=== PATIENT | male | born 1940 | race Caucasian/White ===

== ENCOUNTER 2018-06-27 10:21 | Day surgery (SDC) | payer MEDICARE ==
[~2018-06-27] VITALS: Ht 170.2 cm; Wt 103.9 kg
[2018-06-27] VITALS (8 sets, daily range): BP systolic 100–160; BP diastolic 51–68
[2018-06-27] MEDS ORDERED: diphenhydrAMINE 25mg capsule PO PRN (11:05)
[2018-06-27] MEDS ORDERED: LORazepam 0.5 MG tablet PO PRN (11:05)
[2018-06-27] MEDS ORDERED: normal saline 1,000 ML IV SCH ×2 (11:05→14:14)
[2018-06-27] MEDS ORDERED: nitroGLYCERIN-Tridil 50MG/D5W 250 ML IV ONE (11:31)
[2018-06-27] MEDS ORDERED: RIVA20TA PO (11:31)
[2018-06-27] MEDS ORDERED: MULT-1085 PO (11:31)
[2018-06-27] MEDS ORDERED: FLEC100T PO (11:31)
[2018-06-27] MEDS ORDERED: iohexol 350 MG/1 ML 200ml bottle ONE (11:32)
[2018-06-27] MEDS ORDERED: iohexol 350 MG/ML 50ML vial IV ONE ×2 (11:32→12:32)
[2018-06-27] MEDS ORDERED: LIDOcaine 1% (10mg/ml)w/preservative injection 20ml MDV ONE (11:32)
[2018-06-27] MEDS ORDERED: verapamil 2.5 mg/ml inj IV ONE (11:32)
[2018-06-27] MEDS ORDERED: heparin 1,000unit/ml 10ml vial 10 ML ONE (11:32)
[2018-06-27] MEDS ORDERED: fentaNYL/PF 50MCG/1 ML 2ML syringe ONE (11:39)
[2018-06-27] MEDS ORDERED: midazolam 2 mg/2 ml injection ONE (11:39)
[2018-06-27 11:55] LABS: BASOPHILS % (AUTO) 0.6 % (0-1); EOSINOPHILS % (AUTO) 0.5 % (0-6); HEMOGLOBIN 17.3 g/dl (14.0-17.9); LYMPHOCYTES # (AUTO) 1.5 X10'3 (1.1-4.8); LYMPHOCYTES % (AUTO) 18.5 % (21-51); MEAN CORPUSCULAR HEMOGLOBIN 31.8 PG (27.0-31.0); MEAN CORPUSCULAR HGB CONC 34.6 g/dL (33.0-36.5); MEAN CORPUSCULAR VOLUME 92.1 FL (78-98); MEAN PLATELET VOLUME 7.8 FL (7.4-10.4); MONOCYTES # (AUTO) 0.6 X10'3 (0-0.9); MONOCYTES % (AUTO) 7.7 % (2-12); NEUTROPHILS # (AUTO) 5.8 X10'3 (1.8-7.7); NEUTROPHILS % (AUTO) 72.7 % (42-75); PLATELET COUNT 186 X10'3 (140-440); RED BLOOD COUNT 5.43 X10'6 (4.70-6.10); RED CELL DISTRIBUTION WIDTH 13.5 % (11.5-14.5)
[2018-06-27 12:10] LABS: ALBUMIN 3.6 G/DL (3.4-5.0); ANION GAP 9 (8-16); BLOOD UREA NITROGEN 23 MG/DL (7-18); BUN/CREATININE RATIO 18.9 (5.4-32.0); CALCIUM 8.8 MG/DL (8.5-10.1); CHLORIDE 102 MMOL/L (99-107); CREATININE 1.22 MG/DL (0.60-1.10); GLUCOSE 99 MG/DL (70-104); PARTIAL THROMBOPLASTIN TIME 30 SECONDS (22-32); POTASSIUM 4.2 MMOL/L (3.5-5.1); SODIUM 136 MMOL/L (135-145); TOTAL CARBON DIOXIDE 25.2 MMOL/L (24-32); eGFR 58 ML/MIN
[2018-06-27 13:00] LABS: ISTAT HGB ART 16.3 g/dl (14.0-18.0); ISTAT Hct ART 48 %PCV (42-52); ISTAT O2 SATURATION ARTERIAL 85 % (95-98); ISTAT SOURCE ART
[2018-06-27 13:27] LABS: NUCLEATED RED BLOOD CELLS 1 /100WBC (0-0); TOTAL CELLS COUNTED 100
[2018-06-27 13:28] LABS: PLATELET ESTIMATE NORMAL
[2018-06-27] MEDS ORDERED: acetylcysteine 200 MG/ml 4ml vial PO SCH (14:14)
[2018-06-27 14:26] LABS: ISTAT Hct MIX 45 %PCV (42-52); ISTAT O2 SATURATION MIX VENOUS 68 % (60-80); ISTAT SOURCE MIX
== END 2018-06-27 17:00 | disposition home or self-care (01) ==
LOC: SSTAY O 10:21
PROVIDERS: ATTEND Internal Medicine Cardiovascular Disease
DX: I25.10 Atherosclerotic heart disease of native coronary artery without angina pectoris (principal); I35.0 Nonrheumatic aortic (valve) stenosis; I71.9 Aortic aneurysm of unspecified site, without rupture; I10 Essential (primary) hypertension; G47.30 Sleep apnea, unspecified; I48.91 Unspecified atrial fibrillation; G47.33 Obstructive sleep apnea (adult) (pediatric); Z98.890 Other specified postprocedural states; Z88.8 Allergy status to other drugs, medicaments and biological substances; Z91.040 Latex allergy status; Z91.018 Allergy to other foods
CPT/HCPCS: 36415; 80048; 82803; 85014; 85025; 85610; 85730; 93005; 93460; 93567; 99152; 99153; A6257; C1760; C1769; J1644; J2001; J2250; J3010; J7030; Q0163; Q9967; A4620; J3490

== ENCOUNTER 2018-11-27 15:47 | Outpatient (CLI) | payer MEDICARE ==
[~2018-11-27 15:47] MED LIST: FLEC100T PO; MULT-1085 PO; RIVA20TA PO
[2018-11-27 16:15] LABS: TOTAL HEMOGLOBIN 18.4 G/dl (14.0-17.9)
== END 2018-11-27 23:59 | disposition home or self-care (01) ==
LOC: RT 15:47
PROVIDERS: ATTEND Specialist
DX: J44.9 Chronic obstructive pulmonary disease, unspecified (principal); D75.1 Secondary polycythemia
CPT/HCPCS: 85018; 94010; 94727; 94729

== ENCOUNTER 2019-01-23 07:03 | Day surgery (SDC) | payer MEDICARE ==
[2019-01-22 13:26] LABS: BASOPHILS % (AUTO) 0.5 % (0-1); EOSINOPHILS # (AUTO) 0.1 X10'3 (0-0.9); EOSINOPHILS % (AUTO) 1.3 % (0-6); HEMATOCRIT 48.2 % (42.0-52.0); HEMOGLOBIN 16.6 g/dl (14.0-17.9); LYMPHOCYTES # (AUTO) 1.1 X10'3 (1.1-4.8); LYMPHOCYTES % (AUTO) 17.1 % (21-51); MEAN CORPUSCULAR HEMOGLOBIN 31.3 PG (27.0-31.0); MEAN CORPUSCULAR HGB CONC 34.4 g/dL (33.0-36.5); MEAN PLATELET VOLUME 7.2 FL (7.4-10.4); MONOCYTES # (AUTO) 0.6 X10'3 (0-0.9); MONOCYTES % (AUTO) 8.7 % (2-12); NEUTROPHILS # (AUTO) 4.7 X10'3 (1.8-7.7); NEUTROPHILS % (AUTO) 72.4 % (42-75); PLATELET COUNT 171 X10'3 (140-440); RED CELL DISTRIBUTION WIDTH 15.4 % (11.5-14.5); WHITE BLOOD COUNT 6.5 X10'3 (4.5-11.0)
[2019-01-22 13:36] LABS: ALBUMIN 3.9 G/DL (3.4-5.0); ANION GAP 7 (8-16); BLOOD UREA NITROGEN 15 MG/DL (7-18); CHLORIDE 106 MMOL/L (99-107); CREATININE 1.25 MG/DL (0.60-1.10); GLUCOSE 118 MG/DL (70-104); POTASSIUM 4.6 MMOL/L (3.5-5.1); SODIUM 141 MMOL/L (135-145); eGFR 56 ML/MIN
[~2019-01-23] VITALS: Ht 170.2 cm; Wt 111.3 kg
[2019-01-23] VITALS (14 sets, daily range): BP systolic 115–168; BP diastolic 58–83
[2019-01-23] MEDS ORDERED: MIDAZolam 5mg/ml 2ml vial IV ONE (07:20)
[2019-01-23] MEDS ORDERED: normal saline 1000ml 1,000 ML IV SCH (07:20)
[2019-01-23] MEDS ORDERED: morphine 10mg/ml inj. IV ONE (07:20)
[2019-01-23] MEDS ORDERED: LORazepam 0.5 MG tablet PO ONE (07:25)
[2019-01-23] MEDS ORDERED: amiodarone in dextrose, iso-osm 150mg/100ml bag IV ONE (07:25)
[2019-01-23] MEDS ORDERED: atropine 0.1mg/ml 10ml syringe IV ONE (07:25)
[2019-01-23] MEDS ORDERED: diphenhydrAMINE 25mg capsule PO ONE (07:25)
[2019-01-23] MEDS ORDERED: OMEP-297 PO (08:09)
[2019-01-23] MEDS ORDERED: AMIO200T61 PO (08:09)
[2019-01-23] MEDS ORDERED: METO50TA17 PO (08:09)
[2019-01-23] MEDS ORDERED: ASCO10007 PO (08:09)
[2019-01-23] MEDS ORDERED: CHOL500061 PO (08:09)
== END 2019-01-23 12:27 | disposition home or self-care (01) ==
LOC: SSTAY O 07:03
PROVIDERS: ATTEND Internal Medicine Cardiovascular Disease
DX: I48.19 Other persistent atrial fibrillation (principal); I10 Essential (primary) hypertension; G47.30 Sleep apnea, unspecified; I35.0 Nonrheumatic aortic (valve) stenosis
CPT/HCPCS: 36415; 80048; 85025; 85610; 92960; 93005; J0282; J0461; J2250; J2270; J7030; Q0163

== ENCOUNTER 2019-12-08 16:00 | Inpatient (IN) | payer MEDICARE ==
[~2019-12-08] VITALS: Ht 177.8 cm; Wt 107.6 kg
[~2019-12-08 16:00] MED LIST changes: +AMIO200T61 PO; +ASCO100031 PO; +CHOL500061 PO; -FLEC100T PO; +METO50TA17 PO; +OMEP20CA15 PO
[2019-12-08] MEDS ORDERED: iohexol 350MG/ML 100ml bottle IV ONE (16:12)
[2019-12-08 16:15] LABS: BASOPHILS % (AUTO) 0.5 % (0-1); EOSINOPHILS # (AUTO) 0.1 X10'3 (0-0.9); EOSINOPHILS % (AUTO) 0.7 % (0-6); HEMATOCRIT 50.6 % (42.0-52.0); HEMOGLOBIN 17.2 g/dl (14.0-17.9); LYMPHOCYTES # (AUTO) 1.7 X10'3 (1.1-4.8); LYMPHOCYTES % (AUTO) 19.7 % (21-51); MEAN CORPUSCULAR HEMOGLOBIN 31.9 PG (27.0-31.0); MEAN CORPUSCULAR VOLUME 93.7 FL (78-98); MEAN PLATELET VOLUME 7.5 FL (7.4-10.4); MONOCYTES # (AUTO) 0.7 X10'3 (0-0.9); MONOCYTES % (AUTO) 8.2 % (2-12); NEUTROPHILS % (AUTO) 70.9 % (42-75); PLATELET COUNT 165 X10'3 (140-440); WHITE BLOOD COUNT 8.5 X10'3 (4.5-11.0)
--- NOTE | 2019-12-08 16:18 | NUR ---
to marvin soliman/ felix stroke rn
[2019-12-08 16:31] LABS: PARTIAL THROMBOPLASTIN TIME 29 SECONDS (22-32)
[2019-12-08 16:34] LABS: ALANINE AMINOTRANSFERASE 27 U/L (12-78); ALBUMIN 3.9 G/DL (3.4-5.0); ALBUMIN/GLOBULIN RATIO 1.3 (1.1-1.5); ALKALINE PHOSPHATASE 64 IU/L (46-116); ANION GAP 7 (8-16); ASPARTATE AMINO TRANSFERASE 20 U/L (10-37); BILIRUBIN,TOTAL 1.3 MG/DL (0.1-1.0); BLOOD UREA NITROGEN 18 MG/DL (7-18); CALCIUM 9.4 MG/DL (8.5-10.1); CHLORIDE 104 MMOL/L (99-107); GLUCOSE 95 MG/DL (70-104); POTASSIUM 4.3 MMOL/L (3.5-5.1); SODIUM 139 MMOL/L (135-145); TOTAL CARBON DIOXIDE 28.5 MMOL/L (24-32); TOTAL PROTEIN 6.8 G/DL (6.4-8.2); eGFR 59 ML/MIN
--- NOTE | 2019-12-08 16:55 | NUR ---
TELE NEURO IN PROGRESS AT THIS TIME. FAMILY AND STROKE RN EDMOND AT BEDSIDE.
[2019-12-08 16:59] LABS: ELLIPTOCYTES FEW; PLATELET ESTIMATE NORMAL; POIKILOCYTOSIS 1+; SMUDGE CELLS FEW; TEAR DROP CELLS FEW; TOTAL CELLS COUNTED 100
[2019-12-08 17:00] VITALS: BP 130/77
--- NOTE | 2019-12-08 17:15 | NUR ---
TPA INITIATED PER NEUROLOGIST AT THIS TIME, STROKE RN EDMOND AT BEDSIDE TO VERIFY DOSE, BOLUS GIVEN FOLLOWED BY INFUSION. (SEE EMAR).
[2019-12-08] MEDS ORDERED: alteplase 100MG inj. 100 ML IV ONE (17:20)
[2019-12-08] MEDS ORDERED: normal saline 50ml IV soln 50 ML IV SCH (17:20)
--- NOTE | 2019-12-08 18:29 | NUR ---
Patient resting with at bedside. Stroke RN, Adrianna with patient.
[2019-12-08] MEDS ORDERED: normal saline 1000ml 1,000 ML IV SCH (19:30)
[2019-12-08 19:34] VITALS: BP 157/75
[2019-12-08] MEDS ORDERED: ondansetron/PF 4mg/2ml inj IV PRN (20:45)
[2019-12-08] MEDS ORDERED: potassium Cl 20 mEq SR tablet PO PRN ×2 (20:45)
[2019-12-08] MEDS ORDERED: magnesium 2GM in 50ml NS 50 ML IV PRN (20:45)
[2019-12-08] MEDS ORDERED: magnesium Cl slow-release 64mg tablet PO PRN (20:45)
[2019-12-08] MEDS ORDERED: magnesium 4gm in 100ml NS 100 ML IV PRN (20:45)
[2019-12-08] MEDS ORDERED: potassium CL 10mEq/100ml bag 100 ML IV PRN (20:45)
[2019-12-08] MEDS ORDERED: acetaminophen 325mg tablet PO PRN ×3 (20:45)
[2019-12-08] MEDS: normal saline 1000ml 1,000 ML IV SCH ×2 (20:55→21:53)
--- NOTE | 2019-12-08 22:12 | NUR ---
Patient resting with cpap on
[2019-12-09] VITALS (29 sets, daily range): BP systolic 119–170; BP diastolic 55–87
--- NOTE | 2019-12-09 00:01 | NUR ---
RECEIVED REPORT FROM TACHO TRIPP AND PT WAS TRANSFERRED TO ROOM 2037 AROUND 2340. PT PLACED ON MONITOR, ORIENTED TO ROOM AND PLAN OF CARE, AND QUESTIONS ANSWERED. PT A&O x4 WITH CLEAR SPEECH. 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 WILL CONTINUE TO MONITOR
--- NOTE | 2019-12-09 04:36 | NUR ---
PT SLEEPING COMFORTABLY FOR MOST OF THE NIGHT, WOKE UP TO VOID AND NEURO ASSESSMENT PERFORMED.
[2019-12-09 05:15] LABS: PARTIAL THROMBOPLASTIN TIME 30 SECONDS (22-32)
[2019-12-09 05:16] LABS: BASOPHILS # (AUTO) 0.1 X10'3 (0-0.2); BASOPHILS % (AUTO) 0.6 % (0-1); EOSINOPHILS # (AUTO) 0.1 X10'3 (0-0.9); EOSINOPHILS % (AUTO) 1.2 % (0-6); HEMATOCRIT 48.3 % (42.0-52.0); HEMOGLOBIN 16.5 g/dl (14.0-17.9); LYMPHOCYTES # (AUTO) 1.5 X10'3 (1.1-4.8); MEAN CORPUSCULAR HGB CONC 34.2 g/dL (33.0-36.5); MEAN CORPUSCULAR VOLUME 93.4 FL (78-98); MEAN PLATELET VOLUME 7.9 FL (7.4-10.4); MONOCYTES # (AUTO) 0.8 X10'3 (0-0.9); MONOCYTES % (AUTO) 8.9 % (2-12); NEUTROPHILS # (AUTO) 6.8 X10'3 (1.8-7.7); NEUTROPHILS % (AUTO) 73.3 % (42-75); PLATELET COUNT 160 X10'3 (140-440); RED BLOOD COUNT 5.17 X10'6 (4.70-6.10); RED CELL DISTRIBUTION WIDTH 14.2 % (11.5-14.5); WHITE BLOOD COUNT 9.3 X10'3 (4.5-11.0)
[2019-12-09 05:37] LABS: HEMOGLOBIN A1C 5.7 % (4.5-6.2)
[2019-12-09 05:55] LABS: ALBUMIN 3.7 G/DL (3.4-5.0); ANION GAP 11 (8-16); BLOOD UREA NITROGEN 17 MG/DL (7-18); BUN/CREATININE RATIO 16.3 (5.4-32.0); CALCIUM 8.4 MG/DL (8.5-10.1); CHLORIDE 104 MMOL/L (99-107); CHOL/HDL RATIO 3.8 (0.00-4.99); CHOLESTEROL 136 MG/DL (0-200); CREATININE 1.04 MG/DL (0.60-1.10); GLUCOSE 103 MG/DL (70-104); HDL CHOLESTEROL 36 MG/DL (35-60); LDL CHOLESTEROL 87 MG/DL (50-100); MAGNESIUM 2.1 MG/DL (1.5-2.4); PHOSPHORUS 2.8 MG/DL (2.3-4.5); POTASSIUM 4.1 MMOL/L (3.5-5.1); SODIUM 138 MMOL/L (135-145); TRIGLYCERIDES 130 MG/DL (20-135); eGFR 69 ML/MIN
--- NOTE | 2019-12-09 06:16 | NUR ---
Problems reprioritized. Patient report given, questions answered & plan of care reviewed with ELISEO TRIPP.
[2019-12-09] MEDS: docusate sod 100mg capsule PO SCH ×2 (08:00→19:46)
[2019-12-09] MEDS: pantoprazole 40mg Tablet.DR PO SCH (09:40)
[2019-12-09] MEDS: normal saline 1000ml 1,000 ML IV SCH ×2 (11:13→12:04)
[2019-12-09] MEDS ORDERED: TEST200V10 SQ (12:15)
[2019-12-09] MEDS ORDERED: VITA1TAB20 PO (12:16)
[2019-12-09] MEDS ORDERED: CALC600T22 PO (12:19)
[2019-12-09] MEDS ORDERED: POTASSIUM 99 MG PO (12:19)
[2019-12-09] MEDS ORDERED: TESTOSTERONE CYPIONATE 200 MG/ML VIAL SQ SCH (13:05)
[2019-12-09] MEDS ORDERED: TESTOSTERONE CYPIONATE 200 MG/ML VIAL IM SCH ×2 (13:18→14:00)
[2019-12-09] MEDS: rivaroxaban 20mg tablet PO SCH ×2 (13:51→17:00)
[2019-12-09] MEDS ORDERED: iohexol 350MG/ML 100ml bottle IV ONE (15:29)
--- NOTE | 2019-12-09 18:00 | NUR ---
Patient in room ICU 2037. I have received report from Izaiah TRIPP and had the opportunity to ask questions and assume patient care.
[2019-12-09] MEDS: vancomycin/NS 1 GM ADD-VANTAGE 250 ML IV SCH (19:46)
--- NOTE | 2019-12-09 22:35 | NUR ---
Problems reprioritized. Patient report given, questions answered & plan of care reviewed with Екатерина TRIPP.
--- NOTE | 2019-12-09 23:40 | NUR ---
Patient in room ICU 2037. I have received report from Emili TRIPP and had the opportunity to ask questions and assume patient care.
[2019-12-10] VITALS (29 sets, daily range): BP systolic 108–156; BP diastolic 55–78
[2019-12-10 04:58] LABS: BASOPHILS % (AUTO) 0.5 % (0-1); EOSINOPHILS # (AUTO) 0.2 X10'3 (0-0.9); HEMATOCRIT 46.3 % (42.0-52.0); LYMPHOCYTES # (AUTO) 1.3 X10'3 (1.1-4.8); LYMPHOCYTES % (AUTO) 14.1 % (21-51); MEAN CORPUSCULAR HEMOGLOBIN 32.2 PG (27.0-31.0); MEAN CORPUSCULAR HGB CONC 34.5 g/dL (33.0-36.5); MEAN CORPUSCULAR VOLUME 93.2 FL (78-98); MEAN PLATELET VOLUME 7.7 FL (7.4-10.4); MONOCYTES # (AUTO) 0.9 X10'3 (0-0.9); MONOCYTES % (AUTO) 10.2 % (2-12); NEUTROPHILS # (AUTO) 6.6 X10'3 (1.8-7.7); NEUTROPHILS % (AUTO) 73.2 % (42-75); PLATELET COUNT 150 X10'3 (140-440); RED BLOOD COUNT 4.97 X10'6 (4.70-6.10); RED CELL DISTRIBUTION WIDTH 13.9 % (11.5-14.5)
[2019-12-10 04:59] LABS: PARTIAL THROMBOPLASTIN TIME 34 SECONDS (22-32)
[2019-12-10 05:02] LABS: ALBUMIN 3.4 G/DL (3.4-5.0); ANION GAP 5 (8-16); BLOOD UREA NITROGEN 12 MG/DL (7-18); BUN/CREATININE RATIO 10.8 (5.4-32.0); CALCIUM 9.2 MG/DL (8.5-10.1); CHLORIDE 104 MMOL/L (99-107); CREATININE 1.11 MG/DL (0.60-1.10); GLUCOSE 112 MG/DL (70-104); PHOSPHORUS 3.1 MG/DL (2.3-4.5); SODIUM 135 MMOL/L (135-145); TOTAL CARBON DIOXIDE 26.2 MMOL/L (24-32); eGFR 64 ML/MIN
[2019-12-10] MEDS: normal saline 1000ml 1,000 ML IV SCH ×2 (05:29→19:28)
--- NOTE | 2019-12-10 05:41 | NUR ---
Pt woke up to use the bedside commode, ambulated with minimal assistance and was able to get back to bed with no assistance. Pt's neuro assessment still unchanged. Pt given warm washcloth and wipes to clean self as requested.
--- NOTE | 2019-12-10 06:30 | NUR ---
Problems reprioritized. Patient report given, questions answered & plan of care reviewed with Mary Kay TRIPP.
--- NOTE | 2019-12-10 06:46 | NUR ---
Patient in room ICU 2037. I have received report from QASIM Willams and had the opportunity to ask questions and assume patient care. Patient awake in bed and in no acute distress.
[2019-12-10] MEDS ORDERED: MIDAZolam 5mg/ml 2ml vial IV ONE ×2 (07:15→07:40)
[2019-12-10] MEDS ORDERED: morphine 4 MG/ML inj SYRINge IV ONE (07:15)
[2019-12-10] MEDS: vancomycin/NS 1 GM ADD-VANTAGE 250 ML IV SCH ×2 (07:35→19:32)
[2019-12-10] MEDS ORDERED: morphine 10mg/ml inj. IV ONE (07:40)
[2019-12-10] MEDS ORDERED: potassium chloride 8mEq ER tablet PO SCH (08:00)
--- NOTE | 2019-12-10 09:07 | NUR ---
received report from ICU charge nurse, assuming pt care from charge nurse.
--- NOTE | 2019-12-10 09:07 | NUR ---
Report given to Osmar Mello RN
--- NOTE | 2019-12-10 10:21 | NUR ---
PER Dr. Julian Stop Xarelto start Coumadin 10mg daily Start Lovenox 1mg/Kilo BID
[2019-12-10] MEDS ORDERED: enoxaparin 100mg/ml syringe SUBCUT ONE (11:20)
[2019-12-10] MEDS ORDERED: enoxaparin 30mg/0.3ml syringe SUBCUT SCH (11:27)
[2019-12-10] MEDS ORDERED: enoxaparin 80mg/0.8ml syringe SUBCUT SCH (11:27)
[2019-12-10] MEDS: docusate sod 100mg capsule PO SCH ×2 (11:42→19:32)
[2019-12-10] MEDS: vitamin B comp w/Vit. C tab 1 TAB TABLET PO SCH (11:43)
[2019-12-10] MEDS: ascorbic acid 500mg tablet PO SCH (11:43)
[2019-12-10] MEDS: calcium carbonate 500mg tablet PO SCH (11:44)
[2019-12-10] MEDS: vitamin D (cholecalciferol) 1,000 unit tablet PO SCH (11:44)
[2019-12-10] MEDS: multivitamins, therapeutics tablet PO SCH (11:44)
[2019-12-10] MEDS: pantoprazole 40mg Tablet.DR PO SCH (11:44)
--- NOTE | 2019-12-10 11:53 | NUR ---
LOVENOX NON-ADMIN per conversation with dr. Julian and pt. pt agrees that he will resume his Xarelto does without missing a dose. per dr. Julian Lovenox no longer needed due to pt compliance.
--- NOTE | 2019-12-10 16:26 | NUR ---
pt arrived to Neuro floor, 4009C with all belongings.
[2019-12-10] MEDS ORDERED: rivaroxaban 20mg tablet PO SCH (18:00)
--- NOTE | 2019-12-10 18:10 | NUR ---
Problems reprioritized. Patient report given, questions answered & plan of care reviewed with Evelin TRIPP.
[2019-12-10] MEDS ORDERED: enoxaparin 100mg/ml syringe SUBCUT SCH ×2 (20:00)
[2019-12-10] MEDS ORDERED: lactulose 20gm/30ml cup PO PRN (20:45)
[2019-12-10] MEDS ORDERED: warfarin 10mg tablet PO SCH (21:00)
[2019-12-11 02:00] VITALS: BP 147/65
[2019-12-11 06:00] VITALS: BP 143/68
--- NOTE | 2019-12-11 06:22 | NUR ---
Problems reprioritized. Patient report given, questions answered & plan of care reviewed with QASIM Loya.
--- NOTE | 2019-12-11 06:23 | NUR ---
Patient in room ORTHO 4009. I have received report from Evelin Cronin and had the opportunity to ask questions and assume patient care.
[2019-12-11] MEDS ORDERED: VANCOMYCIN LEVEL IV ONE (06:30)
[2019-12-11 06:48] LABS: BASOPHILS % (AUTO) 0.5 % (0-1); EOSINOPHILS # (AUTO) 0.2 X10'3 (0-0.9); EOSINOPHILS % (AUTO) 2.2 % (0-6); HEMATOCRIT 45.6 % (42.0-52.0); HEMOGLOBIN 15.6 g/dl (14.0-17.9); LYMPHOCYTES # (AUTO) 1.2 X10'3 (1.1-4.8); LYMPHOCYTES % (AUTO) 16.5 % (21-51); MEAN CORPUSCULAR HEMOGLOBIN 31.9 PG (27.0-31.0); MEAN CORPUSCULAR HGB CONC 34.3 g/dL (33.0-36.5); MEAN CORPUSCULAR VOLUME 93.1 FL (78-98); MEAN PLATELET VOLUME 7.7 FL (7.4-10.4); MONOCYTES # (AUTO) 0.7 X10'3 (0-0.9); MONOCYTES % (AUTO) 8.8 % (2-12); NEUTROPHILS # (AUTO) 5.3 X10'3 (1.8-7.7); PLATELET COUNT 147 X10'3 (140-440); RED CELL DISTRIBUTION WIDTH 13.7 % (11.5-14.5); WHITE BLOOD COUNT 7.4 X10'3 (4.5-11.0)
[2019-12-11 06:52] LABS: PARTIAL THROMBOPLASTIN TIME 35 SECONDS (22-32)
[2019-12-11 06:55] LABS: ALBUMIN 3.3 G/DL (3.4-5.0); ANION GAP 7 (8-16); BLOOD UREA NITROGEN 14 MG/DL (7-18); BUN/CREATININE RATIO 12.2 (5.4-32.0); CALCIUM 8.8 MG/DL (8.5-10.1); CHLORIDE 104 MMOL/L (99-107); CREATININE 1.15 MG/DL (0.60-1.10); GLUCOSE 103 MG/DL (70-104); MAGNESIUM 1.9 MG/DL (1.5-2.4); PHOSPHORUS 3.2 MG/DL (2.3-4.5); POTASSIUM 4.2 MMOL/L (3.5-5.1); SODIUM 138 MMOL/L (135-145); TOTAL CARBON DIOXIDE 26.8 MMOL/L (24-32); VANCOMYCIN,TROUGH 9.5 UG/ML (6.0-14.0); eGFR 62 ML/MIN
[2019-12-11] MEDS ORDERED: warfarin 10mg tablet PO SCH (08:00)
[2019-12-11] MEDS: normal saline 1000ml 1,000 ML IV SCH (08:08)
[2019-12-11] MEDS: pantoprazole 40mg Tablet.DR PO SCH (08:09)
[2019-12-11] MEDS: docusate sod 100mg capsule PO SCH ×2 (08:10→20:23)
[2019-12-11] MEDS: ascorbic acid 500mg tablet PO SCH (08:10)
[2019-12-11] MEDS: calcium carbonate 500mg tablet PO SCH (08:10)
[2019-12-11] MEDS: multivitamins, therapeutics tablet PO SCH (08:10)
[2019-12-11] MEDS: vitamin B comp w/Vit. C tab 1 TAB TABLET PO SCH (08:10)
[2019-12-11] MEDS: vitamin D (cholecalciferol) 1,000 unit tablet PO SCH (08:11)
[2019-12-11] MEDS ORDERED: VANCOmycin 1250MG/NS 250ml Bag 250 ML IV SCH (09:00)
[2019-12-11 10:00] VITALS: BP 143/63
--- NOTE | 2019-12-11 10:35 | NUR ---
Per color buffer, reached out to infectious disease MD regarding positive blood cultures. Infectious disease MD will review chart and coordinate where appropriate.
--- NOTE | 2019-12-11 11:24 | NUR ---
Discussed with Dr Julian risk of hemorrhagic conversion of large stroke with anti coagulants, feels patient needs to be on anticoagulant at this time.
[2019-12-11] MEDS: ampicillin inj 2 GM in normal saline 100ml IV soln 100 ML IV SCH ×3 (17:01→23:53)
[2019-12-11 18:00] VITALS: BP 175/72
--- NOTE | 2019-12-11 18:07 | NUR ---
Problems reprioritized. Patient report given, questions answered & plan of care reviewed with Evelin Cronin
[2019-12-11] MEDS: atorvastatin 20mg tablet PO SCH (20:23)
[2019-12-11 22:00] VITALS: BP 116/54
[2019-12-12 02:04] VITALS: BP 135/65
[2019-12-12] MEDS: ampicillin inj 2 GM in normal saline 100ml IV soln 100 ML IV SCH ×2 (03:54→07:52)
[2019-12-12 06:00] VITALS: BP 175/72
[2019-12-12 06:04] LABS: BASOPHILS % (AUTO) 0.6 % (0-1); EOSINOPHILS # (AUTO) 0.2 X10'3 (0-0.9); EOSINOPHILS % (AUTO) 2.4 % (0-6); HEMATOCRIT 46.4 % (42.0-52.0); HEMOGLOBIN 15.9 g/dl (14.0-17.9); LYMPHOCYTES # (AUTO) 1.4 X10'3 (1.1-4.8); LYMPHOCYTES % (AUTO) 21.1 % (21-51); MEAN CORPUSCULAR HGB CONC 34.2 g/dL (33.0-36.5); MEAN CORPUSCULAR VOLUME 93.6 FL (78-98); MEAN PLATELET VOLUME 7.8 FL (7.4-10.4); MONOCYTES # (AUTO) 0.6 X10'3 (0-0.9); MONOCYTES % (AUTO) 8.8 % (2-12); NEUTROPHILS # (AUTO) 4.5 X10'3 (1.8-7.7); NEUTROPHILS % (AUTO) 67.1 % (42-75); PLATELET COUNT 153 X10'3 (140-440); RED BLOOD COUNT 4.96 X10'6 (4.70-6.10); RED CELL DISTRIBUTION WIDTH 13.9 % (11.5-14.5); WHITE BLOOD COUNT 6.7 X10'3 (4.5-11.0)
[2019-12-12 06:08] LABS: PARTIAL THROMBOPLASTIN TIME 29 SECONDS (22-32)
[2019-12-12 06:21] LABS: ALBUMIN 3.3 G/DL (3.4-5.0); ANION GAP 9 (8-16); BLOOD UREA NITROGEN 16 MG/DL (7-18); BUN/CREATININE RATIO 13.9 (5.4-32.0); CALCIUM 8.5 MG/DL (8.5-10.1); CHLORIDE 106 MMOL/L (99-107); CREATININE 1.15 MG/DL (0.60-1.10); GLUCOSE 120 MG/DL (70-104); PHOSPHORUS 3.4 MG/DL (2.3-4.5); POTASSIUM 3.7 MMOL/L (3.5-5.1); SODIUM 138 MMOL/L (135-145); TOTAL CARBON DIOXIDE 22.9 MMOL/L (24-32); eGFR 62 ML/MIN
--- NOTE | 2019-12-12 06:39 | NUR ---
Patient in room ORTHO 4009. I have received report from Evelin Soliz and had the opportunity to ask questions and assume patient care.
--- NOTE | 2019-12-12 06:39 | NUR ---
Problems reprioritized. Patient report given, questions answered & plan of care reviewed with QASIM Loya.
[2019-12-12] MEDS: pantoprazole 40mg Tablet.DR PO SCH (07:51)
[2019-12-12] MEDS: calcium carbonate 500mg tablet PO SCH (07:52)
[2019-12-12] MEDS: vitamin B comp w/Vit. C tab 1 TAB TABLET PO SCH (07:52)
[2019-12-12] MEDS: docusate sod 100mg capsule PO SCH ×2 (07:52→20:33)
[2019-12-12] MEDS: vitamin D (cholecalciferol) 1,000 unit tablet PO SCH (07:53)
[2019-12-12] MEDS: multivitamins, therapeutics tablet PO SCH (07:53)
[2019-12-12] MEDS: ascorbic acid 500mg tablet PO SCH (07:53)
[2019-12-12 09:03] LABS: TOTAL CELLS COUNTED 100
[2019-12-12 09:04] LABS: PLATELET ESTIMATE NORMAL
[2019-12-12 10:00] VITALS: BP 160/67
--- NOTE | 2019-12-12 11:00 | NUR ---
Dr. Purvis in with patient education given, discusse with Dr Purvis recommendation for aspirin daily and he said he would put in the order.
[2019-12-12] MEDS: penicillin G potassium inj 4,000,000 UNIT in normal saline 100ml IV soln 100 ML IV SCH ×4 (12:37→23:52)
[2019-12-12 18:00] VITALS: BP 172/71
--- NOTE | 2019-12-12 18:42 | NUR ---
Problems reprioritized. Patient report given, questions answered & plan of care reviewed with
--- NOTE | 2019-12-12 19:11 | NUR ---
Patient in room ORTHO 4009. I have received report from Shalini TRIPP and had the opportunity to ask questions and assume patient care.
[2019-12-12] MEDS ORDERED: VANCOMYCIN LEVEL IV ONE (20:30)
[2019-12-12] MEDS: atorvastatin 20mg tablet PO SCH (20:32)
[2019-12-12 22:00] VITALS: BP 161/75
[2019-12-13 02:01] VITALS: BP 159/77
[2019-12-13] MEDS: penicillin G potassium inj 4,000,000 UNIT in normal saline 100ml IV soln 100 ML IV SCH ×2 (04:31→08:01)
[2019-12-13 06:00] VITALS: BP 137/79
--- NOTE | 2019-12-13 06:10 | NUR ---
Patient in room ORTHO 4009. I have received report from Florence and had the opportunity to ask questions and assume patient care.
[2019-12-13 06:21] LABS: BASOPHILS % (AUTO) 0.6 % (0-1); EOSINOPHILS # (AUTO) 0.2 X10'3 (0-0.9); EOSINOPHILS % (AUTO) 2.3 % (0-6); HEMOGLOBIN 16.3 g/dl (14.0-17.9); LYMPHOCYTES # (AUTO) 1.5 X10'3 (1.1-4.8); LYMPHOCYTES % (AUTO) 21.1 % (21-51); MEAN CORPUSCULAR HEMOGLOBIN 32.2 PG (27.0-31.0); MEAN CORPUSCULAR HGB CONC 34.7 g/dL (33.0-36.5); MEAN CORPUSCULAR VOLUME 92.9 FL (78-98); MEAN PLATELET VOLUME 7.6 FL (7.4-10.4); MONOCYTES # (AUTO) 0.6 X10'3 (0-0.9); MONOCYTES % (AUTO) 8.5 % (2-12); NEUTROPHILS # (AUTO) 4.7 X10'3 (1.8-7.7); NEUTROPHILS % (AUTO) 67.5 % (42-75); PLATELET COUNT 170 X10'3 (140-440); RED BLOOD COUNT 5.05 X10'6 (4.70-6.10); RED CELL DISTRIBUTION WIDTH 13.8 % (11.5-14.5); WHITE BLOOD COUNT 6.9 X10'3 (4.5-11.0)
--- NOTE | 2019-12-13 06:29 | NUR ---
Problems reprioritized. Patient report given, questions answered & plan of care reviewed with Shalini TRIPP.
[2019-12-13 06:32] LABS: PARTIAL THROMBOPLASTIN TIME 29 SECONDS (22-32)
[2019-12-13 06:37] LABS: ALBUMIN 3.6 G/DL (3.4-5.0); ANION GAP 7 (8-16); BLOOD UREA NITROGEN 13 MG/DL (7-18); BUN/CREATININE RATIO 11.3 (5.4-32.0); CALCIUM 9.1 MG/DL (8.5-10.1); CHLORIDE 104 MMOL/L (99-107); CREATININE 1.15 MG/DL (0.60-1.10); GLUCOSE 100 MG/DL (70-104); MAGNESIUM 2.2 MG/DL (1.5-2.4); PHOSPHORUS 3.1 MG/DL (2.3-4.5); SODIUM 139 MMOL/L (135-145); TOTAL CARBON DIOXIDE 27.9 MMOL/L (24-32); eGFR 62 ML/MIN
[2019-12-13 07:13] LABS: PLATELET ESTIMATE NORMAL; TOTAL CELLS COUNTED 100
[2019-12-13] MEDS: docusate sod 100mg capsule PO SCH ×2 (08:07→20:26)
[2019-12-13] MEDS: pantoprazole 40mg Tablet.DR PO SCH (08:07)
[2019-12-13] MEDS: aspirin 81mg tablet.DR PO SCH (08:07)
[2019-12-13] MEDS: atorvastatin 20mg tablet PO SCH (08:07)
[2019-12-13] MEDS: multivitamins, therapeutics tablet PO SCH (08:08)
[2019-12-13] MEDS: vitamin D (cholecalciferol) 1,000 unit tablet PO SCH (08:08)
[2019-12-13] MEDS: vitamin B comp w/Vit. C tab 1 TAB TABLET PO SCH (08:08)
[2019-12-13] MEDS: calcium carbonate 500mg tablet PO SCH (08:08)
[2019-12-13] MEDS: ascorbic acid 500mg tablet PO SCH (08:08)
[2019-12-13 09:27] VITALS: BP 153/69
[2019-12-13] MEDS: vancomycin/NS 1 GM ADD-VANTAGE 250 ML IV SCH ×2 (09:32→20:26)
--- NOTE | 2019-12-13 10:38 | NUR ---
Initial: Pt presented to ER with stroke like symptoms, admitted for acute CVA and endocarditis. PO intake 75-100% on heart healthy diet, meeting needs. Last BM 12/11, large; receiving routine bowel care. Will continue to follow. Recs: 1) Continue heart healthy diet 2) Routine bowel care 3) Scaled wt per Rx Addendum: 12/13/19 at [address] Amended: Links added. Addendum: 12/13/19 at [address] I have reviewed and agree with note by Graphic Editor. Lindsay Mendoza RD
--- NOTE | 2019-12-13 18:12 | NUR ---
Problems reprioritized. Patient report given, questions answered & plan of care reviewed with
--- NOTE | 2019-12-13 19:50 | NUR ---
Patient in room ORTHO 4009. I have received report from Shalini TRIPP and had the opportunity to ask questions and assume patient care.
[2019-12-13 19:59] VITALS: BP 177/75
[2019-12-13 22:25] VITALS: BP 125/71
--- NOTE | 2019-12-14 06:12 | NUR ---
Problems reprioritized. Patient report given, questions answered & plan of care reviewed with Linnea TRIPP.
[2019-12-14 06:52] LABS: PARTIAL THROMBOPLASTIN TIME 29 SECONDS (22-32)
[2019-12-14 06:53] LABS: BASOPHILS % (AUTO) 0.7 % (0-1); EOSINOPHILS # (AUTO) 0.2 X10'3 (0-0.9); EOSINOPHILS % (AUTO) 2.3 % (0-6); HEMATOCRIT 44.7 % (42.0-52.0); HEMOGLOBIN 15.7 g/dl (14.0-17.9); LYMPHOCYTES # (AUTO) 1.1 X10'3 (1.1-4.8); LYMPHOCYTES % (AUTO) 16.6 % (21-51); MEAN CORPUSCULAR HEMOGLOBIN 32.3 PG (27.0-31.0); MEAN CORPUSCULAR HGB CONC 35.1 g/dL (33.0-36.5); MEAN CORPUSCULAR VOLUME 91.9 FL (78-98); MEAN PLATELET VOLUME 7.7 FL (7.4-10.4); MONOCYTES # (AUTO) 0.6 X10'3 (0-0.9); MONOCYTES % (AUTO) 8.5 % (2-12); NEUTROPHILS # (AUTO) 4.7 X10'3 (1.8-7.7); NEUTROPHILS % (AUTO) 71.9 % (42-75); PLATELET COUNT 166 X10'3 (140-440); RED BLOOD COUNT 4.86 X10'6 (4.70-6.10); RED CELL DISTRIBUTION WIDTH 13.4 % (11.5-14.5); WHITE BLOOD COUNT 6.6 X10'3 (4.5-11.0)
[2019-12-14 07:00] LABS: ALBUMIN 3.4 G/DL (3.4-5.0); ANION GAP 7 (8-16); BLOOD UREA NITROGEN 14 MG/DL (7-18); BUN/CREATININE RATIO 13.1 (5.4-32.0); CALCIUM 8.6 MG/DL (8.5-10.1); CHLORIDE 105 MMOL/L (99-107); CREATININE 1.07 MG/DL (0.60-1.10); GLUCOSE 116 MG/DL (70-104); MAGNESIUM 2.1 MG/DL (1.5-2.4); PHOSPHORUS 3.3 MG/DL (2.3-4.5); POTASSIUM 3.7 MMOL/L (3.5-5.1); SODIUM 138 MMOL/L (135-145); TOTAL CARBON DIOXIDE 25.8 MMOL/L (24-32); eGFR 67 ML/MIN
[2019-12-14 07:41] VITALS: BP 147/62
[2019-12-14] MEDS: vitamin B comp w/Vit. C tab 1 TAB TABLET PO SCH (08:01)
[2019-12-14] MEDS: atorvastatin 20mg tablet PO SCH (08:02)
[2019-12-14] MEDS: ascorbic acid 500mg tablet PO SCH (08:02)
[2019-12-14] MEDS: aspirin 81mg tablet.DR PO SCH (08:02)
[2019-12-14] MEDS: vitamin D (cholecalciferol) 1,000 unit tablet PO SCH (08:02)
[2019-12-14] MEDS: calcium carbonate 500mg tablet PO SCH (08:02)
[2019-12-14] MEDS: pantoprazole 40mg Tablet.DR PO SCH (08:02)
[2019-12-14] MEDS: docusate sod 100mg capsule PO SCH ×2 (08:02→21:02)
[2019-12-14] MEDS: multivitamins, therapeutics tablet PO SCH (08:02)
[2019-12-14] MEDS: vancomycin/NS 1 GM ADD-VANTAGE 250 ML IV SCH ×2 (09:22→21:01)
[2019-12-14 10:33] VITALS: BP 160/76
[2019-12-14 18:00] VITALS: BP 155/70
[2019-12-14] MEDS ORDERED: VANCOMYCIN LEVEL IV ONE (20:30)
[2019-12-14] MEDS: lactobacillus rhamnosus 10,000 MMU CELLS/CAPSULE PO SCH (21:02)
[2019-12-14 22:00] VITALS: BP 147/62
--- NOTE | 2019-12-15 06:07 | NUR ---
Report given to juanita Yarbrough.
[2019-12-15 06:49] VITALS: BP 141/68
[2019-12-15 07:04] LABS: BASOPHILS % (AUTO) 0.6 % (0-1); EOSINOPHILS # (AUTO) 0.2 X10'3 (0-0.9); EOSINOPHILS % (AUTO) 2.1 % (0-6); HEMATOCRIT 44.8 % (42.0-52.0); HEMOGLOBIN 15.7 g/dl (14.0-17.9); LYMPHOCYTES # (AUTO) 1.2 X10'3 (1.1-4.8); LYMPHOCYTES % (AUTO) 16.1 % (21-51); MEAN CORPUSCULAR HEMOGLOBIN 32.4 PG (27.0-31.0); MEAN CORPUSCULAR VOLUME 92.7 FL (78-98); MEAN PLATELET VOLUME 7.5 FL (7.4-10.4); MONOCYTES # (AUTO) 0.6 X10'3 (0-0.9); MONOCYTES % (AUTO) 8.4 % (2-12); NEUTROPHILS # (AUTO) 5.5 X10'3 (1.8-7.7); NEUTROPHILS % (AUTO) 72.8 % (42-75); PLATELET COUNT 171 X10'3 (140-440); RED BLOOD COUNT 4.83 X10'6 (4.70-6.10); RED CELL DISTRIBUTION WIDTH 13.6 % (11.5-14.5); WHITE BLOOD COUNT 7.6 X10'3 (4.5-11.0)
[2019-12-15 07:18] LABS: PARTIAL THROMBOPLASTIN TIME 29 SECONDS (22-32)
[2019-12-15 07:22] LABS: ALBUMIN 3.4 G/DL (3.4-5.0); ANION GAP 5 (8-16); BLOOD UREA NITROGEN 15 MG/DL (7-18); BUN/CREATININE RATIO 12.7 (5.4-32.0); CALCIUM 8.5 MG/DL (8.5-10.1); CHLORIDE 104 MMOL/L (99-107); CREATININE 1.18 MG/DL (0.60-1.10); GLUCOSE 108 MG/DL (70-104); MAGNESIUM 2.2 MG/DL (1.5-2.4); PHOSPHORUS 3.3 MG/DL (2.3-4.5); POTASSIUM 3.7 MMOL/L (3.5-5.1); SODIUM 137 MMOL/L (135-145); TOTAL CARBON DIOXIDE 27.8 MMOL/L (24-32); eGFR 60 ML/MIN
[2019-12-15] MEDS: docusate sod 100mg capsule PO SCH (08:08)
[2019-12-15] MEDS: vitamin B comp w/Vit. C tab 1 TAB TABLET PO SCH (08:08)
[2019-12-15] MEDS: multivitamins, therapeutics tablet PO SCH (08:08)
[2019-12-15] MEDS: calcium carbonate 500mg tablet PO SCH (08:08)
[2019-12-15] MEDS: pantoprazole 40mg Tablet.DR PO SCH (08:08)
[2019-12-15] MEDS: lactobacillus rhamnosus 10,000 MMU CELLS/CAPSULE PO SCH (08:08)
[2019-12-15] MEDS: aspirin 81mg tablet.DR PO SCH (08:08)
[2019-12-15] MEDS: vitamin D (cholecalciferol) 1,000 unit tablet PO SCH (08:08)
[2019-12-15] MEDS: atorvastatin 20mg tablet PO SCH (08:08)
[2019-12-15] MEDS: ascorbic acid 500mg tablet PO SCH (08:08)
[2019-12-15] MEDS ORDERED: VANCOmycin 1250MG/NS 250ml Bag 250 ML IV SCH (09:00)
--- NOTE | 2019-12-15 11:29 | NUR ---
[facility] LINE INFORMATION: REF: [id number] LOT: [id number] EXP: 10/05/2020
--- NOTE | 2019-12-15 14:41 | NUR ---
PATIENT WAS DISCHARGED IV AND TELE WAS REMOVED FROM PATIENT. PATIENT WAS ALERT AND ORIENTED AT TIME OF DISCHARGE.
[2019-12-16] MEDS ORDERED: VANCOMYCIN LEVEL IV ONE (20:30)
== END 2019-12-15 13:35 | disposition home health service (06) | DRG 314 ==
LOC: ER 16:00 → ED HOLD 20:44 → ICU 2S 12-09 00:40 → ORTHO 4S 12-10 16:03
PROVIDERS: ADMIT Internal Medicine Critical Care Medicine; ATTEND Internal Medicine Critical Care Medicine
PROC: B3251ZZ Computerized Tomography (CT Scan) of Bilateral Common Carotid Arteries using Low Osmolar Contrast (ICD-10-PCS; 2019-12-08)
PROC: B3281ZZ Computerized Tomography (CT Scan) of Bilateral Internal Carotid Arteries using Low Osmolar Contrast (ICD-10-PCS; 2019-12-08)
PROC: B32G1ZZ Computerized Tomography (CT Scan) of Bilateral Vertebral Arteries using Low Osmolar Contrast (ICD-10-PCS; 2019-12-08)
PROC: 3E04317 Introduction of Other Thrombolytic into Central Vein, Percutaneous Approach (ICD-10-PCS; 2019-12-08)
PROC: 5A09357 Assistance with Respiratory Ventilation, Less than 24 Consecutive Hours, Continuous Positive Airway Pressure (ICD-10-PCS; principal; 2019-12-09)
PROC: B3251ZZ Computerized Tomography (CT Scan) of Bilateral Common Carotid Arteries using Low Osmolar Contrast (ICD-10-PCS; 2019-12-09)
PROC: B32G1ZZ Computerized Tomography (CT Scan) of Bilateral Vertebral Arteries using Low Osmolar Contrast (ICD-10-PCS; 2019-12-09)
PROC: B3281ZZ Computerized Tomography (CT Scan) of Bilateral Internal Carotid Arteries using Low Osmolar Contrast (ICD-10-PCS; 2019-12-09)
PROC: 5A09357 Assistance with Respiratory Ventilation, Less than 24 Consecutive Hours, Continuous Positive Airway Pressure (ICD-10-PCS; 2019-12-10)
PROC: 5A09357 Assistance with Respiratory Ventilation, Less than 24 Consecutive Hours, Continuous Positive Airway Pressure (ICD-10-PCS; 2019-12-13)
PROC: 02HV33Z Insertion of Infusion Device into Superior Vena Cava, Percutaneous Approach (ICD-10-PCS; 2019-12-15)
PROC: B548ZZA Ultrasonography of Superior Vena Cava, Guidance (ICD-10-PCS; 2019-12-15)
DX: T82.6XXA Infection and inflammatory reaction due to cardiac valve prosthesis, initial encounter (principal); I63.411 Cerebral infarction due to embolism of right middle cerebral artery; I33.0 Acute and subacute infective endocarditis; G81.94 Hemiplegia, unspecified affecting left nondominant side; I08.0 Rheumatic disorders of both mitral and aortic valves; E78.5 Hyperlipidemia, unspecified; I48.0 Paroxysmal atrial fibrillation; E66.9 Obesity, unspecified; G47.33 Obstructive sleep apnea (adult) (pediatric); H53.462 Homonymous bilateral field defects, left side; I10 Essential (primary) hypertension; M19.90 Unspecified osteoarthritis, unspecified site; Y83.1 Surgical operation with implant of artificial internal device as the cause of abnormal reaction of the patient, or of later complication, without mention of misadventure at the time of the procedure; Z79.82 Long term (current) use of aspirin; Z82.3 Family history of stroke; Z85.820 Personal history of malignant melanoma of skin; Z86.79 Personal history of other diseases of the circulatory system; Z88.1 Allergy status to other antibiotic agents; Z95.0 Presence of cardiac pacemaker; Z88.8 Allergy status to other drugs, medicaments and biological substances; Z88.0 Allergy status to penicillin; Z79.899 Other long term (current) drug therapy; Y92.89 Other specified places as the place of occurrence of the external cause; Z68.34 Body mass index [BMI] 34.0-34.9, adult
CPT/HCPCS: 36415; 36573; 70450; 70496; 70498; 70544; 70551; 71045; 80048; 80053; 80061; 80202; 82948; 83036; 83605; 83735; 84100; 84443; 85007; 85025; 85610; 85651; 85730; 86885; 86900; 86901; 87040; 87077; 87081; 87186; 92508; 92616; 93005; 93306; 93308; 93312; 93325; 94760; 94799; 97110; 97116; 97161; 97530; 99285; G0378; J0290; J2250; J2270; J2540; J2997; J3370; J7030; Q9967; Z7610